=== PATIENT | female | born 1965 | race Caucasian/White ===

== ENCOUNTER 2017-04-13 08:23 | Emergency (ER) | payer OTHER ==
[~2017-04-13] VITALS: Ht 160 cm; Wt 63.5 kg
[~2017-04-13 08:23] MED LIST: BIOT10002 PO; VITA1CAP PO
[2017-04-13 08:27] VITALS: BP 115/71
--- NOTE | 2017-04-13 08:30 | NUR ---
Patient ambulated to bed 05.
--- NOTE | 2017-04-13 08:31 | NUR ---
51/F C/O N/V & ABDOMINAL PAIN SINCE LAST NOC. HX GASTRIC ULCER. DENIES V/D NOTED AT THIS TIME; SKIN IS PINK/WARM/DRY; AAOX4 WITH EVEN AND STEADY GAIT; LUNGS CLEAR BL; HR EVEN AND REGULAR; PT DENIES ANY FEVER, CP, SOB, OR COUGH AT THIS TIME; PATIENT STATES PRESURE PAIN OF 8/10 AT THIS TIME; VSS; PATIENT POSITIONED FOR COMFORT; HOB ELEVATED; BEDRAILS UP X2; BED DOWN. ER MD MADE AWARE OF PT STATUS.
--- NOTE | 2017-04-13 08:37 | NUR ---
Dr. Siddiqi evaluating patient at bedside.
[2017-04-13] MEDS ORDERED: LIDOCAINE VISCOUS 2% 20 ML UDC PO ONE (08:45)
[2017-04-13] MEDS ORDERED: ALUMINUM HYD/MAG/SIMETHICONE 30 ML UDC PO ONE (08:45)
[2017-04-13] MEDS ORDERED: DICYCLOMINE HCL LIQUID 10 MG/5 ML UDC PO ONE (08:45)
[2017-04-13] MEDS ORDERED: ONDANSETRON 4 MG/2 ML VIAL IVP ONE (08:55)
--- NOTE | 2017-04-13 09:05 | NUR ---
LAB AT BEDSIDE
[2017-04-13 09:23] LABS: ANION GAP 9.9 (8-16); BASOPHILS # (AUTO) 0.3 K/uL (0.00-0.22); BASOPHILS % (AUTO) 4.2 % (0.0-2.0); CALCIUM 8.7 mg/dL (8.5-10.1); CARBON DIOXIDE 30.4 mmol/L (21-32); CREATININE 0.8 mg/dL (0.6-1.3); EOSINOPHILS # (AUTO) 0.2 K/uL (0-0.4); EOSINOPHILS % (AUTO) 3.1 % (0.0-4.0); HEMATOCRIT 38.9 % (36-48); HEMOGLOBIN 12.9 g/dL (12.0-16.0); LYMPHOCYTES # (AUTO) 2.6 K/uL (2.5-16.5); LYMPHOCYTES % (AUTO) 39.8 % (20.5-51.1); MEAN CORPUSCULAR HEMOGLOBIN 31 pg (27-31); MEAN CORPUSCULAR HGB CONC 33 g/dL (33-37); MEAN CORPUSCULAR VOLUME 93 fL (80-94); MONOCYTES # (AUTO) 0.6 K/uL (0.8-1.0); NEUTROPHILS # (AUTO) 2.9 K/uL (1.8-7.7); NEUTROPHILS % (AUTO) 43.9 % (42.2-75.2); PLATELET COUNT (AUTO) 264 K/uL (140-450); POTASSIUM 4.3 mmol/L (3.5-5.1); RED BLOOD CELL COUNT(AUTO) 4.19 MIL/uL (4.20-5.40); RED CELL DISTRIBUTION WIDTH 12.9 % (11.6-13.7); WHITE BLOOD COUNT (AUTO) 6.6 K/uL (4.8-10.8)
[2017-04-13 09:28] LABS: ALBUMIN 3.4 g/dL (3.4-5.0); TOTAL BILIRUBIN 0.2 mg/dL (0.0-1.0); TOTAL PROTEIN, SERUM 6.7 g/dL (6.4-8.2)
[2017-04-13 10:03] VITALS: BP 118/71
--- NOTE | 2017-04-13 10:03 | NUR ---
Patient discharged with v/s stable. Written and verbal after care instructions given and explained. Patient alert, oriented and verbalized understanding of instructions. Ambulatory with steady gait. All questions addressed prior to discharge. ID band removed. Patient advised to follow up with PMD. Rx of PRILOSEC given. Patient educated on indication of medication including possible reaction and side effects. Opportunity to ask questions provided and answered.
[2017-04-13 10:06] LABS: APPEARANCE,URINE HAZY (CLEAR); BILIRUBIN,URINE NEGATIVE (NEGATIVE); BLOOD, URINE 2+ (NEGATIVE); COLOR,URINE YELLOW (YELLOW); LEUKOCYTE ESTERASE ,URINE NEGATIVE (NEGATIVE); NITRITE, URINE NEGATIVE (NEGATIVE); PROTEIN,URINE NEGATIVE (NEGATIVE); UGLUCOSE NEGATIVE (NEGATIVE); UROBILINOGEN,URINE 0.2 EU/dL (0.2 - 1)
[2017-04-13 10:20] LABS: BACTERIA,URINE OCCASSIONAL /HPF (None Seen); MUCUS,URINE 2+ /LPF (None Seen); WBC,URINE 0-3 /HPF (0-5)
== END 2017-04-13 10:03 | disposition home or self-care (01) ==
LOC: MED 08:23
DX: K27.9 Peptic ulcer, site unspecified, unspecified as acute or chronic, without hemorrhage or perforation (principal); K21.9 Gastro-esophageal reflux disease without esophagitis; F17.210 Nicotine dependence, cigarettes, uncomplicated; Z90.89 Acquired absence of other organs; Z88.8 Allergy status to other drugs, medicaments and biological substances
CPT/HCPCS: 36415; 80053; 81001; 81025; 82150; 83690; 84703; 85025; 93005; 96374; 99285; J2405

== ENCOUNTER 2021-08-21 21:47 | Emergency (ER) | payer OTHER ==
[~2021-08-21] VITALS: Ht 160 cm; Wt 77.1 kg
[~2021-08-21 21:47] MED LIST changes: -BIOT10002 PO; +IBUP-2213 PO; -VITA1CAP PO
[2021-08-21 21:52] VITALS: BP 140/90
--- NOTE | 2021-08-21 21:55 | NUR ---
TO LOBBY A/W BED AMBULATORY
--- NOTE | 2021-08-21 22:10 | NUR ---
PT RETURN FROM RAD TO LOBBY
[2021-08-21] MEDS ORDERED: HYDROcodone/APAP 5/325 MG 1 TAB TAB PO ONE (22:30)
[2021-08-21] MEDS ORDERED: LIDOCAINE/EPI 1% 1:100000 20 ML VIAL INJ ONE (22:30)
--- NOTE | 2021-08-21 22:37 | NUR ---
PT TAKEN TO BED 4
--- NOTE | 2021-08-21 22:40 | NUR ---
Dr. Orta examining patient.
--- NOTE | 2021-08-21 22:50 | NUR ---
BIBS FOR C/C LACERATION TO LEFT WRIST X 20 MIN AGO. PT REPORTS SHE GOT LOCKED OUT OF HER HOUSE AND WAS ATTEMPTING TO CLIMB THROUGH THE WINDOW WHEN SHE CUT HER LEFT WRIST ON THE WINDOW. BLEEDING CONTROLLED AT THIS TIME. PT DENIES NUMBNESS OR TINGLING. RADIAL PULSES STRONG. CAP REFILL < 3 SECONDS. SENSATION INTACT. ALLERGIES: IODINE
--- NOTE | 2021-08-21 22:52 | NUR ---
ERMD AT BEDSIDE FOR SUTURE PLACEMENT.
[2021-08-21] MEDS ORDERED: BACITRACIN OINT 500 UNITS/GM PKT TP ONE ×2 (23:01→23:10)
[2021-08-21] MEDS ORDERED: ACET-8386 PO (23:03)
[2021-08-21] MEDS ORDERED: IBUP-2213 PO (23:03)
--- NOTE | 2021-08-21 23:10 | NUR ---
BACITRACIN WAS PLACED ON PTS LAC, KOBAND WAS PLACED TO WRAP WOUND. PTS PMSC WNL.
[2021-08-21 23:18] VITALS: BP 140/90
--- NOTE | 2021-08-21 23:18 | NUR ---
Patient discharged with v/s stable. Written and verbal after care instructions given and explained. Patient alert, oriented and verbalized understanding of instructions. Ambulatory with steady gait. All questions addressed prior to discharge. ID band removed. Patient advised to follow up with PMD. Rx of NORCO AND MOTRIN given. Patient educated on indication of medication including possible reaction and side effects. Opportunity to ask questions provided and answered.
== END 2021-08-21 23:18 | disposition home or self-care (01) ==
LOC: MED 21:47
DX: S61.512A Laceration without foreign body of left wrist, initial encounter (principal); W45.8XXA Other foreign body or object entering through skin, initial encounter; Y93.89 Activity, other specified; Y92.89 Other specified places as the place of occurrence of the external cause; Y99.8 Other external cause status
CPT/HCPCS: 12002; 73110; 99283; J2001

== ENCOUNTER 2021-08-30 02:00 | Emergency (ER) | payer OTHER ==
[~2021-08-30 02:00] MED LIST changes: +ACET-8386 PO
--- NOTE | 2021-08-30 02:10 | NUR ---
patient call to triage , no response
--- NOTE | 2021-08-30 02:15 | NUR ---
called for the second time , no response
--- NOTE | 2021-08-30 02:25 | NUR ---
called for the third time, no response
== END 2021-08-30 02:10 | disposition left against medical advice (07) ==
LOC: MED 02:00
DX: Z53.21 Procedure and treatment not carried out due to patient leaving prior to being seen by health care provider (principal)